=== PATIENT | female | born 1950 | race Caucasian/White ===

== ENCOUNTER → 2020-03-20 | Outpatient (CLI) | payer OTHER | END | disposition home or self-care (01) | LOC: OIH 09:56 | PROVIDERS: ATTEND Internal Medicine Cardiovascular Disease | DX: Z13.6 Encounter for screening for cardiovascular disorders (principal) | CPT/HCPCS: 75571 ==

== ENCOUNTER → 2023-08-23 | Outpatient (CLI) | payer MEDICARE | END | disposition home or self-care (01) | LOC: SHCH 07:32 | PROVIDERS: ATTEND Internal Medicine Cardiovascular Disease | DX: I65.23 Occlusion and stenosis of bilateral carotid arteries (principal); I77.9 Disorder of arteries and arterioles, unspecified; I25.10 Atherosclerotic heart disease of native coronary artery without angina pectoris; Z79.899 Other long term (current) drug therapy | CPT/HCPCS: 93880 ==

== ENCOUNTER → 2023-09-14 | Outpatient (CLI) | payer MEDICARE ==
[~2023-09-14] MED LIST: IOHEXOL 350 MG/ML 100ML INFUS..BTL IV ONE
== END ==
LOC: RAH 09:34
PROVIDERS: ATTEND Internal Medicine Cardiovascular Disease
DX: I65.23 Occlusion and stenosis of bilateral carotid arteries (principal)
CPT/HCPCS: 70498; Q9967

== ENCOUNTER → 2024-09-30 | Outpatient (CLI) | payer MEDICARE | END | disposition home or self-care (01) | LOC: SHCH 14:56 | PROVIDERS: ATTEND Internal Medicine Cardiovascular Disease | DX: I65.23 Occlusion and stenosis of bilateral carotid arteries (principal); I25.10 Atherosclerotic heart disease of native coronary artery without angina pectoris | CPT/HCPCS: 93880 ==

== ENCOUNTER → 2025-04-03 | Outpatient (CLI) | payer MEDICARE ==
--- NOTE | 2025-04-03 14:57 | HMCIMG ---
Comparison: Findings: There is no acute fracture or dislocation. No instability seen during flexion or extension There are no erosive changes seen. There are degenerative changes manifested by endplate osteophytes at multiple vertebral body levels. impression: No evidence of instability Moderate degenerative changes of the spine. /[place]
== END | disposition home or self-care (01) ==
LOC: RAH 11:32
PROVIDERS: ATTEND Physical Medicine & Rehabilitation
DX: M47.816 Spondylosis without myelopathy or radiculopathy, lumbar region (principal); M99.04 Segmental and somatic dysfunction of sacral region; M25.78 Osteophyte, vertebrae
CPT/HCPCS: 72114